=== PATIENT | female | born 1970 | race African-American/Black ===

== ENCOUNTER 2017-06-15 18:04 | Observation (INO) ==
[2017-06-15] MEDS ORDERED: SODIUM CHLORIDE 0.9% 500 ML IV STA (19:15)
[2017-06-15] MEDS ORDERED: ONDANSETRON 4 MG/2 ML VIAL IV STA (19:15)
[2017-06-15] MEDS ORDERED: ONDANSETRON 4 MG/2 ML VIAL ONE (19:34)
[2017-06-15 19:35] LABS: Basophils # 0.1 10*3/uL (0.0-0.2); Basophils % 0.5 % (0.0-0.8); Eosinophils # 0.7 10*3/uL (0.0-0.87); Eosinophils % 7.2 % (0.00-10.9); Hematocrit 34.1 VOL% (35.7-47.0); Hemoglobin 10.8 GM/DL (12.0-16.0); Immature Granulocytes % 0.3 %; Immature Granulocytes Absolute 0.03 #; Lymphocytes # 3.5 10*3/uL (1.4-4.0); Lymphocytes % 34.9 % (21.3-54.2); Mean Corpuscular HGB Conc 31.7 GM/DL (32-36); Mean Corpuscular Hemoglobin 26 PG (27-34); Mean Corpuscular Volume 82.6 FL (87-102); Mean Platelet Volume 12.3 FL (9.6-12.0); Monocytes # 0.6 10*3/uL (0.11-0.8); Monocytes % 5.6 % (1.7-12.7); Neutrophils # 5.1 10*3/uL (1.4-7.4); Neutrophils % 51.5 % (38.7-73.9); Platelet Count 329 T/CUMM (130-400); Red Blood Count 4.13 MC/CUMM (3.8-5.5); Red Cell Distribution Width 16.1 % (9.3-17.3)
--- NOTE | 2017-06-15 19:39 | Emergency Department Note ---
Matt Pavon Gwan, am scribing for, and in the presence of, Bertin Roper MD 19 :07. Jacquelin Pavon Charles R, MD, personally performed the services described in this documentation, ascribed by Shiva Gutierrez in my presence, and it is both accurate and complete 939 . Arrival - Arrival Chief Complaint: Neuro Stated Complaint: side of face hurt and chest blood pressure was up ED Nursing Triage Note: Pt c/o right sided facial numbness, right sided LUNDBERG, body feels "jittery", CP, and HTN started today at 1000 while at work. Mode of Arrival: Wheelchair Limitations: No Limitations Source: Patient, Old Records Reviewed, RN Notes Reviewed Time Seen by Provider: 06/15/17 18:49 - History of Present Illness HPI Narrative: Patient is a 46 y/o female who presents to the ED with a c/o right facial numbness and right temporal pain with an onset 1000 today. Patient stated that she has also been having a "jittery" feeling and chronic SOB that has worsened with onset of sxs. She denies any chest pain now and she stated that she is beginning to get the feeling back in her face while in ED. No other problems/ complaints reported in ED. Onset (ago): hour(s) Consistency: constant Severity: moderate Date of Last Menstrual Period: April 18 Allergies/Adverse Reactions: Allergies Allergy/AdvReac Type Severity Reaction Status Date / Time No Known Allergies Allergy Verified 01/26/17 09:10 Home Medications: Home Medications Medication Instructions Recorded Confirmed Type Unknown Blood Pressure 0 mg PO DAILY 06/15/17 06/15/17 History metFORMIN [Glucophage] 850 mg PO 0800,1400 06/15/17 06/15/17 History Review of System - Review of System 12 point system: reviewed and no additional remarkable complaints except as stated - Review of System Constitutional: Absent: chills, fever Eyes: Absent: discharge, pain Head/Ears/Nose/Throat: Absent: earache, epistaxis Respiratory: Absent: cough, respiratory distress Cardiovascular: Present: as per HPI. Absent: chest pain Gastrointestinal: Absent: abdominal pain, nausea, vomiting, diarrhea Neurological: Present: as per HPI, headache (right side temperal pain and right side facial numbness), numbness (right side facial numbness) Psychiatric: Present: as per HPI, other (feels "jittery"). Absent: anxiety, depression Medical,Surgical,& Family Hx - Medical History Cardio: History of: Hypertension Endocrine: History of: Diabetes Mellitus (NIDDM) - Surgical History Reproductive Surgeries: Surgical HX of;: Section Orthopedic Surgeries: Patient denies;: Total Knee Replacement - Family History Family History: Reports;: Family Diabetes, Family Heart Disease - Social History Smoking Status: Never smoker Exam Vital Signs: Vital Signs Temperature 97.6 F 06/15/17 18:06 Pulse Rate 67 06/15/17 19:02 Respiratory Rate 16 06/15/17 19:02 Blood Pressure 149/56 06/15/17 19:02 O2 Sat by Pulse Oximetry 98 06/15/17 19:02 - General General appearance: alert, in no apparent distress, obese - Head Head exam: Present: atraumatic, normocephalic, other (Right temperal pain) - Eye Eye exam: Present: normal appearance, PERRL, EOMI - ENT ENT exam: Present: normal oropharynx, mucous membranes moist, TM's normal bilaterally, normal external ear exam - Neck Neck exam: Present: full ROM, trachea midline. Absent: tenderness - Chest Chest inspection: Present: symmetric chest wall rise. Absent: tenderness - Respiratory Respiratory exam: Present: normal lung sounds bilaterally. Absent: respiratory distress - Cardiovascular Cardiovascular exam: Present: regular rate, normal rhythm, normal heart sounds. Absent: murmur - Abdominal Exam Abdominal exam: Present: soft. Absent: tenderness - Extremities Exam Extremities exam: Present: full ROM. Absent: tenderness - Back Exam Back exam: Present: full ROM. Absent: tenderness - Neurological Exam Neurological exam: Present: alert, oriented X3, CN II-XII intact. Absent: motor sensory deficit - Psychiatric Psychiatric exam: Present: normal affect, normal mood - Skin Skin exam: Present: warm, dry, intact, normal color Course Course Narrative: Patient headache is better pain in the right central temporal is better patient will be placed in the hospital rule out temporal arteritis and CVA - Consultations Consultation #1: Hospitalist will admit patient Time: 22:40 Results - Labs CBC & BMP: 06/15/17 19:15 06/15/17 19:15 Lab Results: I have reviewed the patients labs Labs: Laboratory Tests 06/15/17 19:09 POC Glucose 108 H Laboratory Tests 06/15/17 06/15/17 06/15/17 19:15 19:15 19:15 WBC 10.0 RBC 4.13 Hgb 10.8 L Hct 34.1 L MCV 82.6 L MCH 26 L MCHC 31.7 L Plt Count 329 MPV 12.3 H INR 1.0 PT Patient/Control Mix 10.7 Circ Anticoag PTT 28.0 Sodium Potassium Chloride Carbon Dioxide BUN Creatinine C-Reactive Protein 3.29 H Albumin Globulin Albumin/Globulin Ratio Urine pH Ur Specific Henderson Urine Urobilinogen Urine Leukocytes Urine RBC Urine WBC Serum Alcohol 06/15/17 06/15/17 19:15 19:45 WBC RBC Hgb Hct MCV MCH MCHC Plt Count MPV INR PT Patient/Control Mix Circ Anticoag PTT Sodium 139 Potassium 3.9 Chloride 107 Carbon Dioxide 25 BUN 12 Creatinine 0.90 C-Reactive Protein Albumin 3.2 L Globulin 3.9 H Albumin/Globulin Ratio 0.8 L Urine pH 6.0 Ur Specific Henderson 1.020 Urine Urobilinogen 2.0 H Urine Leukocytes Small H Urine RBC 1 Urine WBC <1 Serum Alcohol < 15 L Laboratory Tests 06/15/17 19:45 Urine Opiates Screen Negative Ur Barbiturates Screen Negative Ur Phencyclidine Scrn Negative U Amphetamine/Methamph Negative U Benzodiazepines Scrn Negative U Cocaine Metab Screen Negative U Cannabinoids Screen Negative Laboratory Tests 06/15/17 19:15 ESR Westergren 63 H - Diagnostic Findings Procedure: Chest x-ray: report reviewed by me (No cardiomegaly suggested. ), CT : report reviewed by me (No CT evidence of acute intracranial pathology. MRI brain without intravenous contrast administration is recommended for further evaluation and exclusion of acute ischemia. ) Disposition Clinical Impression: Transient cerebral ischemia, Rule out temporal arteritis, Headache, Weakness on right side of face Case discussed with: patient Disposition: Still a Patient Condition: Stable Time of Disposition: 22:40 NIH Stroke Score - Stroke Score Initial Assessment Level of Consciousness: Alert Level of Consciousness Questions: Answers Both Correctly Level of Consciousness Commands: Obeys Both Correctly Best Gaze: Normal Visual Miranda: No Visual Loss Facial Palsy: Normal Motor - Right Arm: No Drift Motor - Left Arm: No Drift Motor - Right Leg: No Drift Motor - Left Leg: No Drift Limb Ataxia: Absent Sensory (Pin Prick): Normal Best Language: Normal Dysarthria: Normal Extinction / Inattention (Neglect): No Neglect NIH Stroke Score: 0
--- NOTE | 2017-06-15 19:48 | XRay Report ---
XR chest 1V portable Indication: Cardiomegaly. Comparison: Chest x-ray 01/26/2017. Technique: Portable AP chest was performed. Findings: Heart size is normal. Pulmonary vasculature appears within normal limits. No significant abnormality of the mediastinal contours demonstrated. Lungs are clear. Bones and soft tissues demonstrate no significant abnormalities. Impression: 1. No cardiomegaly suggested. 06/15/2017 7:46 PM PROCEDURE INTERPRETED AT [facility] DEPARTMENT OF RADIOLOGY Final Report Signed by: Dr. Flaco Hopkins
[2017-06-15 19:53] LABS: Alanine Aminotransferase 26 U/L (13-56); Albumin 3.2 G/DL (3.4-5.0); Alkaline Phosphatase 71 U/L (45-117); Aspartate Amino Transferase 17 U/L (0-37); Bilirubin,Total < 0.39 MG/DL (0.2-1.0); Blood Urea Nitrogen 12 MG/DL (7-18); Calcium 9.2 MG/DL (8.5-10.1); Glucose 99 MG/DL (74-106); Osmolality,Calculated 276.5 MOS/KG (273-304); PT Patient Result 10.7 SECS; Potassium 3.9 MMOL/L (3.5-5.1); Sodium 139 MMOL/L (136-145); Total Protein 7.1 G/DL (6.4-8.3); Troponin I Only < 0.015 NG/ML (0.00-0.045)
[2017-06-15 20:03] LABS: Apearance,Urine Clear (Clear); Bacteria,Urine Occasional /HPF (Few); Bilirubin,Urine Negative (Negative); Blood, Urine NEGATIVE (Negative); Glucose,Urine (UA) Negative (Negative); Ketones,Urine Negative (Negative); Mucus,Urine Occasional /LPF (Occasional); Nitrite,Urine Negative (Negative); Protein,Urine Negative; RBC,Urine 1 /HPF (0-4); Squamous Epithelial Cell,Urine Occasional /HPF (0-10); Urine Color Straw (Yellow); WBC,Urine <1 /HPF (0-6)
[2017-06-15 20:17] LABS: Barbiturates Screen,Urine Negative (Negative); Benzodiazepines Screen,Urine Negative (Negative); Cannabinoid Screen,Urine Negative (Negative); Opiate Screen,Urine Negative (Negative); Phencyclidine Screen,Urine Negative (Negative)
--- NOTE | 2017-06-15 20:21 | CT Report ---
CT head/brain wo con Indication: Hemiparesis. Laterality not specified. Comparison: None. Technique: CT of the brain was performed without administration of intravenous contrast. The CT examination was performed using one or more of the following dose reduction techniques: Automatic exposure control, adjustment of the mA and kV according to patient size, use of acute or iterative reconstruction techniques. Findings: There is no evidence of acute intracranial hemorrhage, mass, or infarction. Ventricles appear within normal limits. The basal cisterns are patent. No significant abnormality is demonstrated to involve the posterior fossa or cerebellum. Orbits and globes demonstrate no evidence of significant pathology. The paranasal sinuses are clear. No significant abnormality is demonstrated to involve the mastoid air cells. The calvarium and overlying soft tissues demonstrate no evidence of acute pathology. Impression: 1. No CT evidence of acute intracranial pathology. MRI brain without intravenous contrast administration is recommended for further evaluation and exclusion of acute ischemia. 06/15/2017 8:17 PM PROCEDURE INTERPRETED AT [facility] DEPARTMENT OF RADIOLOGY Final Report Signed by: Dr. Flaco Hopkins
[2017-06-15] MEDS ORDERED: methylPREDNISolone SOD SUC 125 MG/2 ML VIAL IV STA (22:41)
[2017-06-15] MEDS ORDERED: methylPREDNISolone SOD SUC 125 MG/2 ML VIAL ONE (22:54)
--- NOTE | 2017-06-15 23:06 | Hospitalist History & Physical ---
Assessment and Plan (1) Weakness on right side of face Status: Acute Current Visit: Yes (2) Transient cerebral ischemia Status: Acute Current Visit: Yes (3) Headache Status: Acute Current Visit: Yes Qualifiers: Headache type: unspecified (4) DM (diabetes mellitus) Status: Acute Assessment and plan: Plan: !. TIA/CVA: rule out continue stroke protocol including neuro cks q4 hours, ASA , Will obtain, TSH, Lipid profile, Carotid doppler studies, MRI/MRA of head and neck. Consult Neurology. Will defer echo at this time until other results are back. Place on Monitored bed. 2. : Chest pain: Resolved. Most likely related to HTN. Trend Troponins, Denies CP at this time. Lipids, Q 4 hour VS. Labetalol prn for SBP greater than 220. 3.: R/o Temporal Arteritis: CRP and ESR elevated. Will continue Steroids, Prednisone 60mg daily. Consider Temporal arterial biopsy based on work up results. Will use SCD's for DVT px and hold anticogulation in the event a biopsy needs to be done. 4. DM type II: Hold metformin due to contrasted studies. Will order IV fluids and keep pt npo for further studies. ACCu cks q 6 hours and Low dose Insulin sliding scale. HGB A1c. 5: HTN: Hold po antihypertensives. Will utilize labetalol for SBP greater than 220. Cardiac monitoring. Current Visit: Yes Qualifiers: Diabetes mellitus type: type 2 Diabetes mellitus complication status: without complication History of Present Illness Chief complaint: Pain on right side of face and numbness with headache History of present illness: Ms. Engel is a 46 year old female with past medical history significant for hypertension diabetes mellitus type 2 and bipolar that presented to the ED with complaints of stroke like symptoms and pain in the right temporal artery area. Patient states that her head the right side of her temporal area started hurting today severely on scale of 9 out of 10. Associated symptoms included chest pain, blurred vision, dizziness, right-sided facial numbness and pain located in her right temporal area that progressed to the point that the patient had to leave work and lay down. The onset of symptoms were abrupt. There were no modifying factors. She denies any previous illness any fever, chills, cough nausea, vomiting, diarrhea, cough, or melena. She states that she had no improvement so she came to the ED. She states she took her metformin thinking that her blood sugar was possibly up and she felt like her BP was elevated. Upon presentation to the ED she was hypertensive with a systolic blood pressure in the 170s and diastolic 117. She states she did not have any relief from her symptoms until she was given pain medicine in the ED. All of her symptoms have resolved except for Temporal artery tenderness. ED work up included an EKG which was normal sinus rhythm, CT scan of the brain which revealed no evidence of acute intra cranial pathology with recommendations of MRI of the brain. Chest x-ray without acute pathology. Labs revealed an elevated ESR and CRP. Steroids and pain medication were also given in the ED. She does not currently have a primary care provider she moved here from [place] and is out of her antihypertensive medications. She will be admitted to the Hospitalist service for TIA/CVA work up and rule out Temporal Arteritis. Home Medications Medication Instructions Recorded Confirmed Type Unknown Blood Pressure 0 mg PO DAILY 06/15/17 06/15/17 History metFORMIN [Glucophage] 850 mg PO 0800,1400 06/15/17 06/15/17 History Allergies Allergy/AdvReac Type Severity Reaction Status Date / Time No Known Allergies Allergy Verified 01/26/17 09:10 Medical,Surgical,& Family Hx - Medical History Cardio: History of: Hypertension Psychological: History of: Bipolar Disorder Endocrine: History of: Diabetes Mellitus (NIDDM) Musculoskeletal: History of: Musculoskeletal Problems (Right knee problems) - Surgical History Reproductive Surgeries: Surgical HX of;: Section Orthopedic Surgeries: Surgical HX of;: Orthopedic Surgery (Right knee surgery) Patient denies;: Total Knee Replacement - Family History Family History: Reports;: Family Diabetes, Family Heart Disease - Social History Smoking Status: Never smoker Frequency of Alcohol Use: None Type of Drug Use: None Functional capacity: independent ambulation - Constitutional Constitutional: Present: as per HPI, headache(s), other ("jitterness") - EENT Eyes: Present: blurry vision. Absent: diplopia Ears: Absent: ear discharge, ear pain Nose, mouth and throat: Present: headache(s) (right temporal arterial pain), other (dizziness). Absent: lip swelling, throat swelling, tongue swelling - Cardiovascular Cardiovascular: Present: chest pain at rest (initially now resolved. ) - Gastrointestinal Gastrointestinal: Absent: abdominal pain, change in bowel habits, constipation, diarrhea - Genitourinary Genitourinary: Present: urinary frequency - Musculoskeletal Musculoskeletal: Present: as per HPI - Neurological Neurological: Present: dizziness, headache(s), other (facial numbness and blurry vision.) - Psychiatric Psychiatric: Present: as per HPI, other (hx of bipolar. Mood normal at this time. ). Absent: anxiety, depression - Endocrine Endocrine: Present: fatigue, polyuria - Hematologic/Lymphatic Hematologic/Lymphatic: Absent: easy bleeding, easy bruising, lymphadenopathy Exam - Constitutional Vitals: Period Temp Pulse Resp BP Sys/Wilburn Pulse Ox Last 24 Hr 97.6 F-97.6 F 65-72 16-18 149-171/56-117 98-100 General appearance: morbidly obese - Head Head exam: Present: normal inspection - Eye Eye exam: Present: EOMI. Absent: nystagmus, periorbital swelling, scleral icterus Pupils: Present: MINESH, normal accommodation. Absent: constricted, dilated, fixed, irregular, unequal - ENT ENT exam: Present: other. Absent: normal exam (complains of mild tenderness at right temporal no erythema or swelling noted. ) - Neck Neck exam: Present: normal inspection - Respiratory Respiratory exam: Present: clear to auscultation bilaterally - Cardiovascular Cardiovascular exam: Present: regular rate and rhythm - GI/Abdominal GI/Abdominal exam: Present: normal bowel sounds. Absent: distended, firm, tenderness - Extremities Exam Extremities exam: Present: normal inspection, normal capillary refill, full ROM - Back Exam Back exam: Present: normal inspection - Neurological Exam Neurological exam: Present: alert, oriented X3, CN II-XII intact, reflexes normal - Psychiatric Psychiatric exam: Present: normal affect, normal mood - Skin Skin exam: Present: normal color, warm, dry, intact. Absent: cyanosis, diaphoretic, erythema, pallor (two tatoos), rash, vesicles Results - Labs CBC & BMP: 06/15/17 19:15 06/15/17 19:15 - EKG EKG results: WNL, sinus rhythm, normal axis - Diagnostic Findings Procedure: Chest x-ray: report reviewed by me, CT: report reviewed by me, X-ray : report reviewed by me Quality Measures - Stroke Onset of Symptoms Date: 06/15/17 Onset of Symptoms Time: 10:00
[2017-06-15] MEDS ORDERED: LABETALOL 20 MG/4 ML SYRINGE IV PRN (23:17)
[2017-06-15] MEDS ORDERED: GLUCAGON 1 MG VIAL IM PRN (23:22)
[2017-06-15] MEDS ORDERED: DEXTROSE 50% 25 GM/50 ML VIAL IV PRN (23:22)
[2017-06-15] MEDS ORDERED: SODIUM CHLORIDE 0.9% 1,000 ML IV SCH (23:30)
[2017-06-16] MEDS: INSULIN LISPRO 100 UNIT/ML SUBCUT SCH ×3 (01:07→12:32)
[2017-06-16] MEDS: INSULIN REGULAR 100 UNIT/ML SUBCUT SCH ×3 (01:08→13:19)
[2017-06-16 02:09] LABS: Cholesterol 185 MG/DL (50-200); HDL Cholesterol 24 MG/DL (40-60); Risk Ratio 7.71; Triglycerides 95 MG/DL (2-150); Troponin I Only < 0.015 NG/ML (0.00-0.045)
--- NOTE | 2017-06-16 02:32 | EKG Report ---
Stationary ECG Study [facility] ER Test Date: 06/15/2017 6:17:41 PM Pat Name: JACQUES PETERSEN Department: Room: 220 Gender: F Consumer [employer]: : 1970 Requested by: Bertin Hermosillo Order Number: [id number] Kellen MD: JOSEPH MALAGON Intervals [place] Rate: 74 P: 30 MT: 131 QRS: 30 QRSD: 73 T: 32 QT: 389 QTc: 416 Interpretive Statements SINUS RHYTHM Electronically Signed On 06-17-17 15:24:40 CDT by JOSEPH MALAGON [email or web address]
[2017-06-16 06:17] LABS: Basophils % 0.3 % (0.0-0.8); Eosinophils % 0.3 % (0.00-10.9); Hematocrit 35.3 VOL% (35.7-47.0); Hemoglobin 11.2 GM/DL (12.0-16.0); Immature Granulocytes % 1.4 %; Lymphocytes # 1.2 10*3/uL (1.4-4.0); Lymphocytes % 17.1 % (21.3-54.2); Mean Corpuscular HGB Conc 31.7 GM/DL (32-36); Mean Corpuscular Hemoglobin 26 PG (27-34); Mean Corpuscular Volume 82.3 FL (87-102); Mean Platelet Volume 12.2 FL (9.6-12.0); Monocytes # 0.1 10*3/uL (0.11-0.8); Monocytes % 1.3 % (1.7-12.7); Neutrophils # 5.6 10*3/uL (1.4-7.4); Neutrophils % 79.6 % (38.7-73.9); Platelet Count 342 T/CUMM (130-400); Red Blood Count 4.29 MC/CUMM (3.8-5.5)
[2017-06-16 06:48] LABS: Calcium 8.8 MG/DL (8.5-10.1); Potassium 4.5 MMOL/L (3.5-5.1)
[2017-06-16] MEDS ORDERED: ASPIRIN 325 MG TABLET PO SCH (09:00)
[2017-06-16] MEDS ORDERED: predniSONE 20 MG TABLET PO SCH (09:00)
--- NOTE | 2017-06-16 09:35 | Hospitalist Progress Note ---
Assessment and Plan (1) Facial pain Status: Acute Assessment and plan: Not sure if his headache or likely neuralgia. MRI is being done patient is to follow by Dr. Whittington Current Visit: Yes (2) DM (diabetes mellitus) Status: Acute Assessment and plan: Continue monitor blood sugar with the insulin as needed metformin was held. Current Visit: Yes Qualifiers: Diabetes mellitus type: type 2 Diabetes mellitus complication status: without complication (3) HTN (hypertension) Status: Acute Assessment and plan: Blood pressure was elevated last night but this morning reading shows it is well controlled Current Visit: Yes Hospitalist: Subjective Interval history: Patient was admitted with the left-sided facial pain and numbness. She also has reported some blurred vision . She denies any weakness in the extremities. She reported pain is better but it is still there at the temporal area the numbness is getting better she is getting sensation back on the face. Exam - Constitutional Vitals: Period Temp Pulse Resp BP Sys/Wilburn Pulse Ox Last 24 Hr 96.9 F-97.6 F 59-72 16-20 130-172/56-117 95-100 General appearance: no acute distress - Head Head exam: Present: normal inspection, normocephalic, atraumatic - Eye Eye exam: Present: EOMI. Absent: conjunctival injection Pupils: Present: MINESH, normal accommodation - Respiratory Respiratory exam: Present: clear to auscultation bilaterally. Absent: rales, rhonchi - Cardiovascular Cardiovascular exam: Present: regular rate and rhythm. Absent: tachycardia - GI/Abdominal GI/Abdominal exam: Present: normal bowel sounds, soft. Absent: tenderness - Extremities Exam Extremities exam: Present: normal inspection. Absent: edema - Neurological Exam Neurological exam: Present: alert, oriented X3 - Psychiatric Psychiatric exam: Present: normal affect, normal mood Results - Labs CBC & BMP: 06/16/17 04:48 06/16/17 04:48 Lab Results: I have reviewed the past 24 hour labs Quality Measures - Stroke Onset of Symptoms Date: 06/15/17 Onset of Symptoms Time: 10:00
--- NOTE | 2017-06-16 09:59 | Ultrasound Report ---
Exam:US carotid duplex BI Date:06/16/2017 4:00 AM Indication: Hemiparesis. Stroke like symptoms. Temporal arteritis workup Color Doppler, wave form analysis, and grayscale analysis of the cervical carotid arteries was performed. There is mild smooth plaque in either carotid bulb. Waveform analysis shows proper directional flow of the cervical carotid arteries. There is antegrade flow in either vertebral artery. The distal right ICA measures 5.3 mm diameter; the left measures 6.1 mm diameter. There is 0-15% diameter reduction narrowing of either internal carotid artery using indirect NASCET criteria. Impression: No hemodynamically significant stenosis of the internal carotid arteries Velocity measurements: Right Side Flow velocities centimeters per second Common carotid artery: 55 Proximal ICA:57.3 Distal ICA:72.9 External carotid artery:104.2 Vertebral artery:40.3 ICA/CCA ratio:1.3 Left SIde Flow velocities centimeters per second Common carotid artery 73 Proximal ICA:57.3 Distal ICA:70.3 External carotid artery:89.9 Vertebral artery:56.0 ICA/CCA ratio:1 Today studies were performed utilizing indirect NASCET criteria PROCEDURE INTERPRETED AT [facility] DEPARTMENT OF RADIOLOGY Final Report Signed by: Dr. Tania Fletcher
--- NOTE | 2017-06-16 15:20 | Event Note ---
Pt gone for MRI.
--- NOTE | 2017-06-16 15:46 | Neurology Consult Note ---
History of Present Illness History of present illness: Ms. Engel is a 46 year old -[place] lady who presented today for the evaluation of right temporal headaches. Patient reported that she has been having headaches for last 4-6 months. Headache frequency is 2 per week and primarily it hurts in the bitemporal and occipital region. Headache associated with nausea vomiting photophobia and phonophobia. Never had any workup done. She takes almost 2-4 ibuprofen every day. And also take Excedrin 2-3 times a week. MRI of the brain is unremarkable. ESR is high at 53 and CRP at 2.6. Home Medications Medication Instructions Recorded Confirmed Type Unknown Blood Pressure 0 mg PO DAILY 06/15/17 06/15/17 History metFORMIN [Glucophage] 850 mg PO 0800,1400 06/15/17 06/15/17 History Allergies Allergy/AdvReac Type Severity Reaction Status Date / Time No Known Allergies Allergy Verified 01/26/17 09:10 12 point system: reviewed and no additional remarkable complaints except as stated Medical,Surgical,& Family Hx - Medical History Cardio: History of: Hypertension Psychological: History of: Bipolar Disorder Endocrine: History of: Diabetes Mellitus (NIDDM) Musculoskeletal: History of: Musculoskeletal Problems (Right knee problems) - Surgical History Reproductive Surgeries: Surgical HX of;: Section Orthopedic Surgeries: Surgical HX of;: Orthopedic Surgery (Right knee surgery) Patient denies;: Total Knee Replacement - Family History Family History: Reports;: Family Diabetes, Family Heart Disease - Social History Smoking Status: Never smoker Frequency of Alcohol Use: None Type of Drug Use: None Exam - Constitutional Vitals: Period Temp Pulse Resp BP Sys/Wilburn Pulse Ox Last 24 Hr 96.9 F-97.6 F 59-72 16-20 130-172/56-117 95-100 Exam: GENERAL: Patient is in no acute distress. NECK: Neck is supple. There is no JVD. No carotid bruits present. No thyroid masses. CVS: First and second heart sounds are normal. There is no S3 present. Regular rate and rhythm. RESPIRATORY: Lungs are clear to auscultation without any rales or rhonchi. ABDOMEN: Soft and non-tender. Bowel sounds are present. There is no hepatosplenomegaly. EXT: There is no palpable edema. Peripheral pulses are present. Skin: No rashes Central Nervous system: General: Alert, awake and Oriented x 3 Speech: Fluent Comprehension: Intact and normal Facial expressions: Normal Cranial Nerves: CN1/Olfactory: Normal CN II/ Optic: Normal, Visual Miranda unreliable CN III, and : MINESH & EOMI CN V: Normal & intact CN VII: face is symmetric CNVIII: Normal CN XI/X/XI/XII: Intact and Normal Motor: Bulk and Tone is normal. Strength in the right 5/5 Strength in the left 5/5 Sensory: Grossly intact for all the modalities of PP, LT and temp sense Reflexes: 1+ and symmetrical Cerebellar function: Normal finger to nose and heel to coats testing. Toes: Equivocal Gait: Normal heel to heel and toe to toe and tandem walk. Results - Labs CBC & BMP: 06/16/17 04:48 06/16/17 04:48 Assessment and Plan (1) Chronic migraine Status: Acute Assessment and plan: Start Elavil 25 mg po hs Fioricet 1 tablet every 4-6 as needed CRP and ESR is high could be nonspecific but needs further investigation as an outpatient Stop prednisone for now Stop all [id number] pain medicine Follow-up in 4 weeks Current Visit: Yes Specialty Discharge - Follow Up or Referrals Follow up with: Rashard Whittington MD [Physician] - 1 Month
[2017-06-16] MEDS ORDERED: BUTALBITAL/ACETAMIN/CAFFEINE 50-325-40 MG TABLET PO PRN (15:48)
[2017-06-16 15:59] VITALS: BP 139/94
--- NOTE | 2017-06-16 16:21 | Magnetic Resonance Report ---
History: Right-sided facial weakness. Transient cerebral ischemia. Headache. Temporal arteritis workup Date: 06/16/2017 Study: MRI brain without IV contrast Comparison exam: No previous MRI brain study The brain was imaged in 3 planes on the 1.5 Shazia magnet without IV contrast, to include diffusion, T2, FLAIR, gradient echo, and T1-weighted sequences. The ventricles are midline in position without evidence of hydrocephalus. There is no Chiari I malformation. There is no gross pituitary mass. There is no evidence of acute ischemia on the diffusion sequence. There is no mass or parenchymal hemorrhage. There is no extra-axial hematoma. There is no flow abnormality in the superior sagittal sinus. There is no gross flow abnormality in the [place] area. There is no obvious cerebellopontine angle mass. There is no extra-axial hematoma. Impression: Normal MRI brain without contrast PROCEDURE INTERPRETED AT [facility] DEPARTMENT OF RADIOLOGY Final Report Signed by: Dr. Tania Fletcher
--- NOTE | 2017-06-16 16:34 | Magnetic Resonance Report ---
History: Right-sided facial weakness. Transient cerebral ischemia. Headache. Temporal arteritis workup Date: 06/16/2017 Study: MR angiogram neck with and without IV contrast Comparison exam: No previous similar A 3-D [id number] MRA of the neck was performed with and without IV contrast on the 1.5 Shazia magnet. In addition to axial source images, 3-D maximum intensity projection images were also archived and evaluated. There is normal arch anatomy. There is no hemodynamically significant stenosis at the origins of great vessels. There is no significant stenosis of the common carotid arteries bilaterally. The left vertebral artery is generally patent without hemodynamically significant stenosis. The right vertebral artery is threadlike and grossly patent. There is some subtle beading of the proximal 3 to 4 cm the right ICA and proximal 2 to 3 cm of the right ECA. This raises the question of arteritis or fibromuscular dysplasia. There is no significant narrowing of the left ECA or ICA. The normal right ICA measures 3.9 mm diameter; normal left measures 4.4 mm. There is 0% diameter reduction narrowing of the left ICA and less than 30% of the right ICA using NASCET criteria. Impression: No hemodynamically significant internal carotid artery stenosis There is some beading of the proximal right ICA and ECA which raises the question of fibromuscular dysplasia or arteritis Dominant left vertebral artery PROCEDURE INTERPRETED AT [facility] DEPARTMENT OF RADIOLOGY Final Report Signed by: Dr. Tania Fletcher
--- NOTE | 2017-06-16 16:37 | Discharge Summary ---
Hospital Course - Hospital Course Hospital Course: Ms. Engel is a 46 year old -Stateless lady with history of hypertension diabetes mellitus and chronic migraine. She was admitted with the history of right-sided headache and numbness. She pointed to the temporal area associated with the numbness nausea vomiting photophobia. These numbness was better this morning when he she was seen she was evaluated in ER with the CT scan which did not show any acute intracranial abnormalities. MRI carotid Dopplers and MRA neck were without any significant abnormalities. Patient had no fever and has normal troponin level 3. 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 Hemoglobin A1c was 7.7 . Patient was seen by Dr. Whittington and thinks patient has chronic migraine. He added Elavil 25 mg p.o. at bedtime and Fioricet 1 tablet every 4-6 as needed. He asked to start prednisone and he plan to follow- up with in 1 month. He plan to repeat CRP and ESR. Patient was seen and plan explained she agree and and would like to go home. Her blood pressure was elevated on the visitation but recent readings are within acceptable range. She has been on losartan/HCTZ (160/12.5) for blood pressure and requested a prescription which I will fill..She is on metformin for diabetes she need to continue with the diet control and weight loss she needs to follow-up with the local provider for her primary care need. I have also given prescription for metformin on her request . She is being discharged discharged to follow with Dr. Whittington in 1 month and the again asked to get a local primary care provider to manage diabetes and hypertension Diagnosis - Discharge Diagnosis (1) Facial pain Status: Acute (2) DM (diabetes mellitus) Status: Acute (3) HTN (hypertension) Status: Acute (4) Chronic migraine Status: Acute Specialty Discharge - Follow Up or Referrals Follow up with: Rashard Whittington MD [Physician] - 1 Month Discharge Plan - Discharge Data Disposition: Disch To Home/Self Care Condition at Discharge: Stable Discharge Diet: advance to your usual diet, diabetic diet Activity: resume usual activities as tolerated - Discharge Medications New Amitriptyline [Elavil] 25 mg PO BEDTIME #30 tablet Butalbital/Acet/Caff 50-325-40 [Fioricet 50-325-40 mg Tablet] 1 tablet PO Q6H PRN #30 tablet PRN Reason: Migraine Headache Penicillin Vk Tab 500 mg PO Q6HR #42 tablet Valsartan/Hydrochlorothiazide [Valsartan-Hctz 160-12.5 mg Tab] 1 each PO DAILY #30 tablet Continue Valsartan/Hydrochlorothiazide [Valsartan-Hctz 160-12.5 mg Tab] 12.5 PO DAILY #0 Changed metFORMIN [Glucophage] 850 mg PO BID #60 - Follow Up or Referral Follow Up: Rashard Whittington MD [Physician] - 1 Month - Forms/Instructions Exam - Constitutional Vitals: Period Temp Pulse Resp BP Sys/Wilburn Pulse Ox Last 24 Hr 96.9 F-97.6 F 59-72 16-20 130-172/56-117 95-100 General appearance: no acute distress - Head Head exam: Present: normal inspection, normocephalic, atraumatic - Eye Eye exam: Present: EOMI. Absent: conjunctival injection Pupils: Present: MINESH, normal accommodation - Respiratory Respiratory exam: Present: clear to auscultation bilaterally. Absent: rales, rhonchi - Cardiovascular Cardiovascular exam: Present: regular rate and rhythm. Absent: tachycardia - GI/Abdominal GI/Abdominal exam: Present: normal bowel sounds, soft. Absent: tenderness - Extremities Exam Extremities exam: Present: normal inspection. Absent: edema - Neurological Exam Neurological exam: Present: alert, oriented X3 - Psychiatric Psychiatric exam: Present: normal affect, normal mood Discharge Results Procedures and tests throughout hospitalization: Pending Orders 06/15/17 Urine Culture Routine 06/16/17 04:00 MR angio head wo con (COW) IN AM Labs on day of discharge: Labs from last 24 hours 06/16/17 06/16/17 06/16/17 12:07 05:38 04:48 WBC RBC Hgb Hct MCV MCH MCHC RDW Plt Count MPV Neut % (Auto) Lymph % (Auto) Morgan % (Auto) Eos % (Auto) Baso % (Auto) Neut # (Auto) Lymph # (Auto) Morgan # (Auto) Eos # (Auto) Baso # (Auto) Immature Gran % Nucleated RBC % Immature Gran # Nucleated RBCs # Immature Plt Fraction ESR Westergren INR PT Patient/Control Mix Circ Anticoag PTT Sodium Potassium Chloride Carbon Dioxide Anion Gap BUN Creatinine GFR Calculation BUN/Creatinine Ratio Glucose POC Glucose 214 H 201 H Hemoglobin A1c Calculated Osmolality Calcium Total Bilirubin AST ALT Alkaline Phosphatase Troponin I < 0.015 C-Reactive Protein Total Protein Albumin Globulin Albumin/Globulin Ratio Triglycerides Cholesterol LDL Cholesterol VLDL Cholesterol HDL Cholesterol Heart Disease Risk Ratio Free T4 TSH 3rd Generation Urine Color Urine Appearance Urine pH Ur Specific [place] Urine Protein Urine Glucose (UA) Urine Ketones Urine Blood Urine Nitrate Urine Bilirubin Urine Urobilinogen Urine Leukocytes Urine RBC Urine WBC Ur Squamous Epith Cells Urine Bacteria Urine Mucus Ur Culture Indicated? Urine Opiates Screen Ur Barbiturates Screen Ur Phencyclidine Scrn U Amphetamine/Methamph U Benzodiazepines Scrn U Cocaine Metab Screen U Cannabinoids Screen Serum Alcohol 06/16/17 06/16/17 06/16/17 04:48 04:48 04:48 WBC 7.0 RBC 4.29 Hgb 11.2 L Hct 35.3 L MCV 82.3 L MCH 26 L MCHC 31.7 L RDW 16.0 Plt Count 342 MPV 12.2 H Neut % (Auto) 79.6 H Lymph % (Auto) 17.1 L Morgan % (Auto) 1.3 L Eos % (Auto) 0.3 Baso % (Auto) 0.3 Neut # (Auto) 5.6 Lymph # (Auto) 1.2 L Morgan # (Auto) 0.1 L Eos # (Auto) 0.0 Baso # (Auto) 0.0 Immature Gran % 1.4 Nucleated RBC % 0.0 Immature Gran # 0.10 Nucleated RBCs # 0.00 Immature Plt Fraction 0.0 ESR Westergren INR PT Patient/Control Mix Circ Anticoag PTT 28.9 Sodium 136 Potassium 4.5 Chloride 105 Carbon Dioxide 23 Anion Gap 12.5 BUN 11 Creatinine 0.90 GFR Calculation 111 BUN/Creatinine Ratio 12.00 Glucose 199 H POC Glucose Hemoglobin A1c Calculated Osmolality 276.0 Calcium 8.8 Total Bilirubin AST ALT Alkaline Phosphatase Troponin I C-Reactive Protein Total Protein Albumin Globulin Albumin/Globulin Ratio Triglycerides Cholesterol LDL Cholesterol VLDL Cholesterol HDL Cholesterol Heart Disease Risk Ratio Free T4 TSH 3rd Generation Urine Color Urine Appearance Urine pH Ur Specific [place] Urine Protein Urine Glucose (UA) Urine Ketones Urine Blood Urine Nitrate Urine Bilirubin Urine Urobilinogen Urine Leukocytes Urine RBC Urine WBC Ur Squamous Epith Cells Urine Bacteria Urine Mucus Ur Culture Indicated? Urine Opiates Screen Ur Barbiturates Screen Ur Phencyclidine Scrn U Amphetamine/Methamph U Benzodiazepines Scrn U Cocaine Metab Screen U Cannabinoids Screen Serum Alcohol 06/16/17 06/16/17 06/16/17 04:48 01:33 01:33 WBC RBC Hgb Hct MCV MCH MCHC RDW Plt Count MPV Neut % (Auto) Lymph % (Auto) [place] % (Auto) Eos % (Auto) Baso % (Auto) Neut # (Auto) Lymph # (Auto) Morgan # (Auto) Eos # (Auto) Baso # (Auto) Immature Gran % Nucleated RBC % Immature Gran # Nucleated RBCs # Immature Plt Fraction ESR Westergren INR PT Patient/Control Mix Circ Anticoag PTT Sodium Potassium Chloride Carbon Dioxide Anion Gap BUN Creatinine GFR Calculation BUN/Creatinine Ratio Glucose POC Glucose Hemoglobin A1c Calculated Osmolality Calcium Total Bilirubin AST ALT Alkaline Phosphatase Troponin I < 0.015 C-Reactive Protein Total Protein Albumin Globulin Albumin/Globulin Ratio Triglycerides Cholesterol LDL Cholesterol VLDL Cholesterol HDL Cholesterol Heart Disease Risk Ratio Free T4 1.21 TSH 3rd Generation 2.420 Urine Color Urine Appearance Urine pH Ur Specific [place] Urine Protein Urine Glucose (UA) Urine Ketones Urine Blood Urine Nitrate Urine Bilirubin Urine Urobilinogen Urine Leukocytes Urine RBC Urine WBC Ur Squamous Epith Cells Urine Bacteria Urine Mucus Ur Culture Indicated? Urine Opiates Screen Ur Barbiturates Screen Ur Phencyclidine Scrn U Amphetamine/Methamph U Benzodiazepines Scrn U Cocaine Metab Screen U Cannabinoids Screen Serum Alcohol 06/16/17 06/16/17 06/16/17 01:15 01:15 00:55 WBC RBC Hgb Hct MCV MCH MCHC RDW Plt Count MPV Neut % (Auto) Lymph % (Auto) [place] % (Auto) Eos % (Auto) Baso % (Auto) Neut # (Auto) Lymph # (Auto) Morgan # (Auto) Eos # (Auto) Baso # (Auto) Immature Gran % Nucleated RBC % Immature Gran # Nucleated RBCs # Immature Plt Fraction ESR Westergren INR PT Patient/Control Mix Circ Anticoag PTT Sodium Potassium Chloride Carbon Dioxide Anion Gap BUN Creatinine GFR Calculation BUN/Creatinine Ratio Glucose POC Glucose 160 H Hemoglobin A1c 7.7 H Calculated Osmolality Calcium Total Bilirubin AST ALT Alkaline Phosphatase Troponin I < 0.015 C-Reactive Protein Total Protein Albumin Globulin Albumin/Globulin Ratio Triglycerides 95 Cholesterol 185 LDL Cholesterol 136.0 VLDL Cholesterol 19.0 HDL Cholesterol 24 L Heart Disease Risk Ratio 7.71 Free T4 TSH 3rd Generation Urine Color Urine Appearance Urine pH Ur Specific [place] Urine Protein Urine Glucose (UA) Urine Ketones Urine Blood Urine Nitrate Urine Bilirubin Urine Urobilinogen Urine Leukocytes Urine RBC Urine WBC Ur Squamous Epith Cells Urine Bacteria Urine Mucus Ur Culture Indicated? Urine Opiates Screen Ur Barbiturates Screen Ur Phencyclidine Scrn U Amphetamine/Methamph U Benzodiazepines Scrn U Cocaine Metab Screen U Cannabinoids Screen Serum Alcohol 06/15/17 06/15/17 06/15/17 19:45 19:45 19:15 WBC RBC Hgb Hct MCV MCH MCHC RDW Plt Count MPV Neut % (Auto) Lymph % (Auto) [place] % (Auto) Eos % (Auto) Baso % (Auto) Neut # (Auto) Lymph # (Auto) Morgan # (Auto) Eos # (Auto) Baso # (Auto) Immature Gran % Nucleated RBC % Immature Gran # Nucleated RBCs # Immature Plt Fraction ESR Westergren INR PT Patient/Control Mix Circ Anticoag PTT Sodium 139 Potassium 3.9 Chloride 107 Carbon Dioxide 25 Anion Gap 10.9 BUN 12 Creatinine 0.90 GFR Calculation 118 BUN/Creatinine Ratio 13.00 Glucose 99 POC Glucose Hemoglobin A1c Calculated Osmolality 276.5 Calcium 9.2 Total Bilirubin < 0.39 AST 17 ALT 26 Alkaline Phosphatase 71 Troponin I < 0.015 C-Reactive Protein Total Protein 7.1 Albumin 3.2 L Globulin 3.9 H Albumin/Globulin Ratio 0.8 L Triglycerides Cholesterol LDL Cholesterol VLDL Cholesterol HDL Cholesterol Heart Disease Risk Ratio Free T4 TSH 3rd Generation Urine Color Straw Urine Appearance Clear Urine pH 6.0 Ur Specific [place] 1.020 Urine Protein Negative Urine Glucose (UA) Negative Urine Ketones Negative Urine Blood Negative Urine Nitrate Negative Urine Bilirubin Negative Urine Urobilinogen 2.0 H Urine Leukocytes Small H Urine RBC 1 Urine WBC <1 Ur Squamous Epith Cells Occasional Urine Bacteria Occasional Urine Mucus Occasional Ur Culture Indicated? Results to follow Urine Opiates Screen Negative Ur Barbiturates Screen Negative Ur Phencyclidine Scrn Negative U Amphetamine/Methamph Negative U Benzodiazepines Scrn Negative U Cocaine Metab Screen Negative U Cannabinoids Screen Negative Serum Alcohol < 15 L 06/15/17 06/15/17 06/15/17 19:15 19:15 19:15 WBC 10.0 RBC 4.13 Hgb 10.8 L Hct 34.1 L MCV 82.6 L MCH 26 L MCHC 31.7 L RDW 16.1 Plt Count 329 MPV 12.3 H Neut % (Auto) 51.5 Lymph % (Auto) 34.9 Morgan % (Auto) 5.6 Eos % (Auto) 7.2 Baso % (Auto) 0.5 Neut # (Auto) 5.1 Lymph # (Auto) 3.5 Morgan # (Auto) 0.6 Eos # (Auto) 0.7 Baso # (Auto) 0.1 Immature Gran % 0.3 Nucleated RBC % 0.0 Immature Gran # 0.03 Nucleated RBCs # 0.00 Immature Plt Fraction 0.0 ESR Westergren INR 1.0 PT Patient/Control Mix 10.7 Circ Anticoag PTT 28.0 Sodium Potassium Chloride Carbon Dioxide Anion Gap BUN Creatinine GFR Calculation BUN/Creatinine Ratio Glucose POC Glucose Hemoglobin A1c Calculated Osmolality Calcium Total Bilirubin AST ALT Alkaline Phosphatase Troponin I C-Reactive Protein 3.29 H Total Protein Albumin Globulin Albumin/Globulin Ratio Triglycerides Cholesterol LDL Cholesterol VLDL Cholesterol HDL Cholesterol Heart Disease Risk Ratio Free T4 TSH 3rd Generation Urine Color Urine Appearance Urine pH Ur Specific [place] Urine Protein Urine Glucose (UA) Urine Ketones Urine Blood Urine Nitrate Urine Bilirubin Urine Urobilinogen Urine Leukocytes Urine RBC Urine WBC Ur Squamous Epith Cells Urine Bacteria Urine Mucus Ur Culture Indicated? Urine Opiates Screen Ur Barbiturates Screen Ur Phencyclidine Scrn U Amphetamine/Methamph U Benzodiazepines Scrn U Cocaine Metab Screen U Cannabinoids Screen Serum Alcohol 06/15/17 06/15/17 19:15 19:09 WBC RBC Hgb Hct MCV MCH MCHC RDW Plt Count MPV Neut % (Auto) Lymph % (Auto) [place] % (Auto) Eos % (Auto) Baso % (Auto) Neut # (Auto) Lymph # (Auto) [place] # (Auto) Eos # (Auto) Baso # (Auto) Immature Gran % Nucleated RBC % Immature Gran # Nucleated RBCs # Immature Plt Fraction ESR Westergren 63 H INR PT Patient/Control Mix Circ Anticoag PTT Sodium Potassium Chloride Carbon Dioxide Anion Gap BUN Creatinine GFR Calculation BUN/Creatinine Ratio Glucose POC Glucose 108 H Hemoglobin A1c Calculated Osmolality Calcium Total Bilirubin AST ALT Alkaline Phosphatase Troponin I C-Reactive Protein Total Protein Albumin Globulin Albumin/Globulin Ratio Triglycerides Cholesterol LDL Cholesterol VLDL Cholesterol HDL Cholesterol Heart Disease Risk Ratio Free T4 TSH 3rd Generation Urine Color Urine Appearance Urine pH Ur Specific [place] Urine Protein Urine Glucose (UA) Urine Ketones Urine Blood Urine Nitrate Urine Bilirubin Urine Urobilinogen Urine Leukocytes Urine RBC Urine WBC Ur Squamous Epith Cells Urine Bacteria Urine Mucus Ur Culture Indicated? Urine Opiates Screen Ur Barbiturates Screen Ur Phencyclidine Scrn U Amphetamine/Methamph U Benzodiazepines Scrn U Cocaine Metab Screen U Cannabinoids Screen Serum Alcohol Preliminary micro results at discharge 06/15/17 Unknown Urine Culture - Preliminary Urine,Voided No Growth at 12 hours. DS: Provider Date of admission: 06/15/17 23:17 Primary care physician: . No PCP Attending physician on admission: Real Edward MD Consults: 06/15/17 23:17 Consult to Case Mgmt/Social Srvs [CONS] Routine Reason for Case Mgmt/Social Srvs: Discharge Planning Consult to Occupational Therapy [CONS] Routine Reason for Occupational Therapy: Evaluate and Treat Consult Comment: Stroke Consult to Physical Therapy [CONS] Routine Reason for Physical Therapy: Evaluate and Treat Consult Comment: stroke Consult to Speech Therapy [CONS] Routine Reason for Speech Therapy: CVA Consult Comment: with/without possible aspiration 06/15/17 23:50 Consult to Physician [CONS] Routine Comment: Consulting Provider: Rashard Whittington Consult to Specialist Group: Neurology When should Consulting Provider be notified: In am Person Notified: TAZ Date Notified: 06/16/17 Time Notified: 09:04 Discharging clinician: Kar Kolb MD
--- NOTE | 2017-06-16 16:38 | Magnetic Resonance Report ---
History: Right-sided facial weakness. Transient cerebral ischemia. Headache. Temporal arteritis workup Date: 06/16/2017 Study: MRA [place] without contrast Comparison exam: No previous similar A 3-D [id number] MRA of the [place] was performed without IV contrast on the 1.5 Shazia magnet. In addition to axial source images, 3-D maximum intensity projection images were also archived and evaluated. 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 There is no patent cerebral artery aneurysm. There is no focal high-grade stenosis in the [place] region. There is no significant basilar artery stenosis. Flow is noted within the bilateral superior cerebellar and left anterior inferior cerebellar arteries. There is no basilar tip aneurysm. There is no high-grade stenosis of the distal internal carotid arteries bilaterally, though there is some mild atherosclerotic irregularity and narrowing which is slightly more prominent on the right than on the left. The anterior, middle, and posterior cerebral arteries are otherwise generally patent Impression: No patent cerebral artery aneurysm. No focal high-grade stenosis of the [place] area. PROCEDURE INTERPRETED AT [facility] DEPARTMENT OF RADIOLOGY Final Report Signed by: Dr. Tania Fletcher
[2017-06-16] MEDS ORDERED: AMITRIPTYLINE 25 MG TABLET PO SCH (21:00)
== END 2017-06-16 18:09 | disposition home or self-care (01) ==
LOC: N.EDINP 18:04 → N.ED 18:04 → SUATTDRO 23:17 → N.2E 06-16 00:31
PROVIDERS: ADMIT Internal Medicine; ATTEND Internal Medicine